=== PATIENT | female | born 1950 | race Caucasian/White ===

== ENCOUNTER 2019-02-14 16:51 | Emergency (ER) | payer OTHER, BC, SELFPAY ==
[2019-02-14 18:28] VITALS: BP 175/87; PULSE 84; RESP 16; TEMP 36.6; O2SAT 99; BMI 25.4
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
[2019-02-14 21:39] VITALS: BP 131/89; PULSE 84; RESP 18; O2SAT 98
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
== END 2019-02-14 22:01 | disposition home or self-care (01) ==
PROVIDERS: Emergency Provider Emergency Medicine; Family Provider Family Medicine
DX: S09.8XXA Other specified injuries of head, initial encounter (principal); V89.2XXA Person injured in unspecified motor-vehicle accident, traffic, initial encounter
CPT/HCPCS: 70450; 99281

== ENCOUNTER → 2019-02-21 08:18 | Outpatient (BNVA) | payer SELFPAY | PROVIDERS: Family Provider Family Medicine; Referring Provider Obstetrics & Gynecology | DX: Z01.419 Encounter for gynecological examination (general) (routine) without abnormal findings (principal) | CPT/HCPCS: G0328 ==

== ENCOUNTER 2019-04-04 13:37 | Outpatient (CLI) | payer BC, SELFPAY ==
--- NOTE | 2019-04-04 13:49 | US_ITS ---
WS: [id number] ULTRASOUND RIGHT BREAST HISTORY: 6 MONTH F/U ABNORMAL MAMM/NODULES COMPARISON: 09/22/2018 TECHNIQUE: 2-D and Doppler. At 10:00, 5 cm from the nipple is a hypoechoic mass measuring 6 x 7 x 6 mm. This corresponds to the a bnormality seen on the prior study. This is a complex cystic mass with through-transmission. There ar e additional smaller similar cysts in the upper outer quadrant of the RIGHT breast. 1. No change in a hypoechoic, probably cystic mass at 10:00, 5 cm from the nipple since 09/22/2018. 2. Patient to return for annual mammogram in August 2019. Additional follow-up ultrasound of the RIGHT breast at 10:00 should be performed at that time. US/US breast RT limited* [id number] IMPRESSION: BI-RADS: 3-Probably Benign FOLLOW-UP: 6 Month Follow-up
== END 2019-04-04 13:38 | disposition home or self-care (01) ==
LOC: RAD 13:37
PROVIDERS: Family Provider Family Medicine; PCP Family Medicine; Visit Provider Obstetrics & Gynecology
DX: N63.11 Unspecified lump in the right breast, upper outer quadrant (principal); R92.8 Other abnormal and inconclusive findings on diagnostic imaging of breast
CPT/HCPCS: 76642

== ENCOUNTER 2019-10-24 10:09 | Outpatient (CLI) | payer BC, SELFPAY ==
--- NOTE | 2019-10-24 11:00 | US_ITS ---
WS: [id number] ULTRASOUND RIGHT BREAST HISTORY: Follow-up cysts. COMPARISON: 04/04/2019, 09/22/2018 and 09/01/2018 TECHNIQUE: 2-D and Doppler. No mammogram performed in order to correlate ultrasound findings with Ultrasound follow-up of the RIGHT breast is directed to the upper outer quadrant. On the 10:00 axis t here are several cysts. Previously described hypoechoic mass at 5 cm from the nipple at 10:00 is not identified. There are several cysts in the upper-outer quadrant. No solid mass. One of the cysts has a minimally thick wall measuring 7 x 6 x 6 mm. This minimally thick wall cyst is at 10:00 5 cm from t he nipple with no interval change. US/US breast RT limited* [id number] IMPRESSION: BI-RADS: 0-Incomplete: Need additional imaging evaluation FOLLOW-UP: See Report Patient was due for annual mammogram in August 2019. Mammography personnel was un able to obtain an order for annual mammogram. Annual mammogram should be obtain ed in order to evaluate both breasts is recommended by the A[facility].
== END 2019-10-24 10:10 | disposition home or self-care (01) ==
LOC: RADSHAW 10:12
PROVIDERS: PCP Family Medicine; Visit Provider Obstetrics & Gynecology
DX: N60.01 Solitary cyst of right breast (principal)
CPT/HCPCS: 76642

== ENCOUNTER 2019-11-07 11:21 | Outpatient (CLI) | payer BC, SELFPAY ==
--- NOTE | 2019-11-07 11:00 | MM_ITS ---
WS: [id number] SCREENING DIGITAL MAMMOGRAM WITH CAD HISTORY: SCREENING COMPARISON: 09/22/2018, 09/01/2018, 10/24/2019. Bilateral CC and MLO views submitted. Computer aided detection analyzed. Breast composition: The breasts are heterogeneously dense, which may obscure small masses. No suspici ous masses, microcalcifications or architectural distortion. Benign calcification lateral LEFT breast . 9 mm ovoid nodule 9:00 RIGHT breast. Corresponds to a recent cyst seen by ultrasound on 10/24/2019. Size and location as seen on the ultrasound correspond to the mammographic abnormality. MM/[id number] IMPRESSION: BI-RADS: 2-Benign FOLLOW UP: 1 Year Follow-up
== END 2019-11-07 11:22 | disposition home or self-care (01) ==
LOC: RADSHAW 11:24
PROVIDERS: PCP Family Medicine; Visit Provider Obstetrics & Gynecology
DX: Z12.31 Encounter for screening mammogram for malignant neoplasm of breast (principal)
CPT/HCPCS: 77067

== ENCOUNTER → 2020-02-12 14:22 | Outpatient (BNVA) | payer BC, SELFPAY | PROVIDERS: PCP Family Medicine; Visit Provider Obstetrics & Gynecology | DX: Z01.411 Encounter for gynecological examination (general) (routine) with abnormal findings (principal) | CPT/HCPCS: 82270 ==

== ENCOUNTER 2021-06-05 10:07 | Outpatient (CLI) | payer BC, SELFPAY ==
--- NOTE | 2021-06-05 10:14 | MM_ITS ---
WS: [id number] BILATERAL SCREENING 3D TOMOSYNTHESIS DIGITAL MAMMOGRAM WITH CAD HISTORY: SCREENING COMPARISON: 11/07/2019, 09/22/2018, 09/01/2018 and 04/02/2016 Bilateral CC and MLO views submitted. Computer aided detection analyzed. Breast composition: There are scattered areas of fibroglandular density. No suspicious masses, microc alcifications or architectural distortion. Asymmetry in the upper outer quadrant of the RIGHT breast is again identified. In the asymmetries and 9 mm slightly lobulated nodule which is [facility] in the past and noted to be a cyst or complex cyst on ultrasound. Benign calcif ication in the central LEFT breast. MM/[place] [id number] IMPRESSION: BI-RADS: 2-Benign FOLLOW UP: 1 Year Follow-up
== END 2021-06-05 10:08 | disposition home or self-care (01) ==
LOC: RADSHAW 10:12
PROVIDERS: PCP Family Medicine; Visit Provider Family Medicine
DX: Z12.31 Encounter for screening mammogram for malignant neoplasm of breast (principal)
CPT/HCPCS: 77063; 77067

== ENCOUNTER 2022-06-17 12:06 | Outpatient (CLI) | payer BC, SELFPAY ==
--- NOTE | 2022-06-17 12:18 | MM_ITS ---
WS: [id number] BILATERAL 3D TOMOSYNTHESIS DIGITAL SCREENING MAMMOGRAPHY WITH CAD CLINICAL INFORMATION: SCREENING HISTORY: Screening mammogram. No current complaints. COMPARISON: June 05, 2021 TECHNIQUE: Bilateral CC and MLO views. FINDINGS: The breasts are composed of heterogeneous fibroglandular density tissue, which can limit the detectio n of small underlying mass lesions. No suspicious mass, asymmetry, calcifications, or architectural d istortion. No evidence of malignancy. Nodular breast tissue upper outer breasts bilaterally. Benign c alcification LEFT breast. MM/[place] [id number] IMPRESSION: BI-RADS: 2-Benign FOLLOW UP: 1 Year Follow-up Recommend return to annual screening mammography.
== END 2022-06-17 12:07 | disposition home or self-care (01) ==
LOC: RAD 12:08
PROVIDERS: PCP Family Medicine; Visit Provider Family Medicine
DX: Z12.31 Encounter for screening mammogram for malignant neoplasm of breast (principal)
CPT/HCPCS: 77063; 77067

== ENCOUNTER 2023-06-24 10:13 | Outpatient (CLI) | payer BC, SELFPAY ==
--- NOTE | 2023-06-24 10:16 | MM_ITS ---
WS: [id number] BILATERAL SCREENING DIGITAL TOMOSYNTHESIS MAMMOGRAM WITH CAD HISTORY: Screening. COMPARISON: None available. Bilateral CC and MLO views with tomosynthesis and synthetic mammography submitted. Computer aided det ection analyzed. Breast composition: There are scattered areas of fibroglandular density. No suspicious masses, microc alcifications or architectural distortion. Benign calcifications in each breast. Stable 9 mm high den sity mass in the posterior RIGHT breast. MM/[place] [id number] IMPRESSION: BI-RADS: 2-Benign FOLLOW UP: 1 Year Follow-up
== END 2023-06-24 10:14 | disposition home or self-care (01) ==
LOC: RAD 10:13
PROVIDERS: PCP Family Medicine; Visit Provider Family Medicine
DX: Z12.31 Encounter for screening mammogram for malignant neoplasm of breast (principal)
CPT/HCPCS: 77063; 77067

== ENCOUNTER 2024-06-25 09:44 | Outpatient (CLI) | payer BC, MEDICARE, SELFPAY ==
--- NOTE | 2024-06-25 09:52 | MM_ITS ---
WS: [id number] BILATERAL SCREENING DIGITAL TOMOSYNTHESIS MAMMOGRAM WITH CAD HISTORY: SCREENING COMPARISON: 06/24/2023, 06/17/2022 and 06/05/2021 Bilateral CC and MLO views with tomosynthesis and synthetic mammography submitted. Computer aided detection analyzed. Breast composition: There are scattered areas of fibroglandular density. No suspicious masses, microcalcifications or architectural distortion. Asymmetries are stable. 9 mm high density mass upper outer quadrant RIGHT breast is stable over multiple prior years. No interval change. MM/MM [facility] tomosynthesis [id number] IMPRESSION: BI-RADS: 2 - Benign. FOLLOW UP: 1 Year Follow-up
== END 2024-06-25 09:45 | disposition home or self-care (01) ==
LOC: RAD 09:48
PROVIDERS: PCP Family Medicine; Visit Provider Family Medicine
DX: Z12.31 Encounter for screening mammogram for malignant neoplasm of breast (principal); R92.323 Mammographic fibroglandular density, bilateral breasts; N64.89 Other specified disorders of breast
CPT/HCPCS: 77063; 77067